=== PATIENT | female | born 1990 | race Caucasian/White ===

== ENCOUNTER → 2021-11-13 | Outpatient (CLI) | payer BC ==
--- NOTE | 2021-11-13 15:51 | RAD ---
Study: CT maxillofacial without contrast INDICATION: Fall. Trauma to the face. Facial swelling and pain. COMPARISON: None. TECHNIQUE: Axial CT imaging of the maxillofacial structures performed without the use of intravenous contrast. Coronal and sagittal reformats were obtained. One or more of the following individualized dose reduction techniques were utilized for this examinat ion: 1. Automated exposure control 2. Adjustment of the mA and/or kV according to patient size 3. Use of iterative reconstruction technique. FINDINGS: Bones: No acute or subacute facial bone fracture. Anatomic temporomandibular joint alignment. No significant abnormality of the teeth. The upper cervical spine is intact. No fluid/hemorrhage within the paranas al sinuses. Normally aerated mastoid air cells and middle ears. Soft tissues: Symmetric positioning of the globes. No retrobulbar hematoma. No readily apparent facial contusion or laceration. Unremarkable deeper spaces of the neck. The intracranial contents included in the field- of-view are not adequately evaluated but appear unremarkable IMPRESSION: 1. No acute or subacute facial bone fracture. 2. Unremarkable globes and intraconal soft tissues. Overall unremarkable exam with reported facial s welling not well appreciated. Electronically signed by: NISREEN SINGH MD (11/13/2021 3:49 PM) [facility]
== END ==
LOC: CT 12:46
PROVIDERS: ATTEND Family Medicine
DX: S09.93XA Unspecified injury of face, initial encounter (principal); R22.0 Localized swelling, mass and lump, head; W19.XXXA Unspecified fall, initial encounter; Y93.89 Activity, other specified; Y92.89 Other specified places as the place of occurrence of the external cause; Y99.8 Other external cause status
CPT/HCPCS: 70486

== ENCOUNTER 2021-12-04 11:37 | Emergency (ER) | payer BC ==
[~2021-12-04] VITALS: Ht 165.1 cm; Wt 99.4 kg
--- NOTE | 2021-12-04 11:48 | PHYS DOC ---
Past History Past Medical History: No Pertinent History Smoking: Non-smoker Alcohol Use: None Drug Use: None General Adult HPI: HPI: Patient is a 31-year-old female with almost 2 days of sore throat, congestion, myalgias, fevers, chills, mild headache. She also reports nausea, vomiting and diarrhea. She denies abdominal pain. She denies urinary symptoms. She denies cough, dyspnea, chest pain. She denies neck pain or neck stiffness. She denies photophobia or vision disturbance. She denies fall, head injury or syncope. She took Tylenol about an hour prior to arrival, she took ibuprofen several hours ago. She is febrile on arrival. She reports that a few weeks ago she presented to her PCPs office and had similar symptoms, she had negative flu, strep, COVID test at that time. She has been fully vaccinated against COVID-19, she has received an influenza vaccine within the last year as well. She denies recent sick contacts or travel history. Review of Systems: Review of Systems: Constitutional: Reports fever or chills Eyes: Denies change in visual acuity, denies vision loss or photophobia HENT: Reports sire throat, painful swallowing, mild nasal congestion Respiratory: Denies cough or shortness of breath Cardiovascular: Denies chest pain or edema GI: Denies abdominal pain. Reports nausea, vomiting and mild diarrhea. : Denies urinary symptoms. Musculoskeletal: Denies back pain or joint pain Integument: Denies rash Neurologic: Reports mild headache. Denies dizziness, head injury, syncope, numbness, tingling, motor weakness Psychiatric: Denies depression or anxiety Physical Exam: PE: Constitutional: Well developed, well nourished, no acute distress, non-toxic appearance. She does appear to be somewhat uncomfortable/in pain. HENT: Normocephalic, atraumatic, oropharynx is patent, uvula midline, bilateral tonsillar erythema, exudate noted, no uvular edema, no pooling of secretions, voice is clear and not muffled. Mucous membranes are moist. External ears normal bilaterally. No rhinorrhea or epistaxis. TMs are clear bilaterally. Eyes: Sclera are anicteric, conjunctive are normal, no discharge or matting Neck: Normal range of motion, no tenderness, supple, no stridor. No meningismus. Cardiovascular: Tachycardic, regular, +2 radial and +2 posterior tibial pulses bilaterally. Lungs & Thorax: Lungs are clear to auscultation bilaterally without rales, rhonchi or wheezes. No stridor. No respiratory distress. Abdomen: Abdomen is soft, nondistended, nontender to palpation. No palpable masses organomegaly. Skin: Warm, dry, no erythema, no rash. [] Back: No tenderness, no CVA tenderness. [] Extremities: No tenderness, no cyanosis, no clubbing, ROM intact, no edema. [] Neurologic: Alert and oriented X 3, normal motor function, normal sensory function, no focal deficits noted. [] Psychologic: Affect normal, judgement normal, mood normal. [] EKG: EKG: [] Radiology/Procedures: Radiology/Procedures: [] Heart Score: C/O Chest Pain: No Risk Factors: Risk Factors: DM, Current or recent (<one month) smoker, HTN, HLP, family history of CAD, obesity. Risk Scores: Score 0 - 3: 2.5% MACE over next 6 weeks - Discharge Home Score 4 - 6: 20.3% MACE over next 6 weeks - Admit for Clinical Observation Score 7 - 10: 72.7% MACE over next 6 weeks - Early Invasive Strategies Course & Med Decision Making: Course & Med Decision Making Pertinent Labs and Imaging studies reviewed. (See chart for details) Patient is given IV fluids, IV Zofran, IV Toradol. She is feeling much better. Rapid strep is positive. She is given IV Decadron and IM Bicillin LA. She is resting comfortably, reports feeling much better. She manifests no evidence of respiratory distress, no clinical evidence of peritonsillar abscess, no evidence of airway compromise. I have discussed all of the findings, differential diagnosis and plan of care with her. I discussed home care instructions with her. She is given a work excuse for 3 days. Return precautions are given. She verbalizes understanding. Katherin Disclaimer: Katherin Disclaimer: This electronic medical record was generated, in whole or in part, using a voice recognition dictation system. Departure Departure: Impression: Primary Impression: Strep throat Additional Impression: Nausea vomiting and diarrhea Disposition: HOME / SELF CARE / HOMELESS Condition: STABLE Referrals: TIMMY LEE MD (PCP) Patient Instructions: Fever, Nausea and Vomiting, Strep Throat Additional Instructions: Use the medication as needed/as directed. Stay hydrated, drink plenty of fluids, eat a soft, bland diet. Return to the ER immediately for difficulty breathing, inability to swallow, problems controlling secretions, severe neck pain, dehydration or any other concerns. In addition to the prescription pain medication you may take plain [id number] ibuprofen. Do not take any extra Tylenol-containing products with the prescription pain medication, but if you do not take the prescription pain medication, you may take plain [id number] Tylenol. Follow-up with your primary care physician. Scripts Hydrocodone Bit/Acetaminophen (HYDROCODONE-APAP 5-325 ) 1 Each Tablet 1 TAB PO PRN Q6HRS PRN for PAIN, #15 TAB 0 Refills Prov: MONISHA MULLIGAN DO 12/04/21 Ondansetron (ONDANSETRON ODT) 4 Mg Tab.rapdis 1 TAB PO PRN Q6-8HRS for nausea and vomiting, #20 TAB Prov: MONISHA MULLIGAN DO 12/04/21 MONISHA MULLIGAN DO December 04, 2021 11:48
[2021-12-04] MEDS ORDERED: KETOROLAC 15 MG/ML VIAL. IVP ONE (12:00)
[2021-12-04] MEDS ORDERED: IV NORMAL SALINE 1,000ML 1,000 ML IV ONE (12:00)
[2021-12-04] MEDS ORDERED: ONDANSETRON PF 4 MG/2 ML VIAL. IVP ONE (12:00)
[2021-12-04] MEDS ORDERED: PENICILLIN G BENZATHINE LA 1,200,000 UNIT/2 ML DISP.SYRIN. IM ONE (13:00)
[2021-12-04] MEDS ORDERED: DEXAMETHASONE SOD PHOS 10 MG/ML VIAL. IVP ONE (13:00)
[2021-12-04 13:11] LABS: CALCIUM 8.8 mg/dL (8.5-10.1); CREATININE 0.8 mg/dL (0.6-1.0); GFR 83.1; POTASSIUM 3.8 mmol/L (3.5-5.1)
[2021-12-04 13:13] LABS: MAGNESIUM 1.7 mg/dL (1.8-2.4)
[2021-12-04 13:14] LABS: BASO # 0.1 x10^3/uL (0.0-0.2); BASO % 1 % (0-3); EOS % 0 % (0-3); HEMATOCRIT 40.2 % (36.0-47.0); HEMOGLOBIN 13.5 g/dL (12.0-15.5); LYMPH % 5 % (24-48); MEAN CORPUSCULAR HEMOGLOBIN 28 pg (25-35); MEAN CORPUSCULAR HGB CONC 34 g/dL (31-37); MEAN CORPUSCULAR VOLUME 82 fL (79-100); MONO # 1.2 x10^3/uL (0.0-1.1); MONO % 6 % (0-9); NEUT # 19.4 x10^3uL (1.8-7.7); NEUT % 89 % (31-73); PLATELET COUNT 372 x10^3/uL (140-400); RED BLOOD COUNT 4.89 x10^6/uL (3.50-5.40); WHITE BLOOD COUNT 21.7 x10^3/uL (4.0-11.0)
[2021-12-04 13:21] LABS: INFLUENZA A PATIENT NEGATIVE (NEGATIVE); INFLUENZA B PATIENT NEGATIVE (NEGATIVE)
[2021-12-04 13:41] LABS: COLOR,URINE YELLOW
[2021-12-04 13:42] LABS: BACTERIA,URINE MANY /HPF (0-FEW); CLARITY,URINE CLOUDY; GLUCOSE,URINE NEG (NEG); NITRITE,URINE NEG (NEG); SQUAMOUS EPITHELIAL CELL,UR MANY /LPF; UROBILINOGEN,URINE 0.2 mg/dL (0.2 mg/dL); WBC,URINE 20-40 /HPF (0-4)
[2021-12-04] MEDS ORDERED: ONDA4TAB12 PO (13:59)
[2021-12-04] MEDS ORDERED: HYDR-2155 PO (13:59)
[2021-12-04 14:00] VITALS: BP 134/75
[2021-12-04 14:08] LABS: MONONUCLEOSIS PATIENT NEGATIVE (NEGATIVE)
[2021-12-04 18:34] LABS: % LYMPHS 11 % (24-48); % MONOS 7 % (0-10); % SEGS 82 % (35-66); ANISOCYTOSIS SLIGHT; PLT ESTIMATE ADEQUATE (ADEQUATE)
== END 2021-12-04 14:05 | disposition home or self-care (01) ==
LOC: ER 11:37
DX: J02.0 Streptococcal pharyngitis (principal); R11.2 Nausea with vomiting, unspecified; R19.7 Diarrhea, unspecified; R51.9 Headache, unspecified; Z20.822 Contact with and (suspected) exposure to COVID-19
CPT/HCPCS: 36415; 80048; 81001; 81025; 83605; 83735; 85007; 85025; 86308; 87040; 87086; 87428; 87880; 96361; 96372; 96374; 96375; 99284; J0561; J1100; J1885; J2405; J7030